=== PATIENT | male | born 1970 | race Asian ===

== ENCOUNTER 2023-09-22 06:50 | Emergency (ER) | payer BC ==
[~2023-09-22] VITALS: Ht 172.7 cm; Wt 165.7 kg
[2023-09-22 10:35] LABS: ALANINE AMINOTRANSFERASE 24 U/L (12-78); ALBUMIN 3.2 G/DL (3.4-5.0); ALBUMIN/GLOBULIN RATIO 0.7 (1.1-1.5); ALKALINE PHOSPHATASE 111 IU/L (46-116); ANION GAP 7 (8-16); ASPARTATE AMINO TRANSFERASE 15 U/L (10-37); BILIRUBIN,TOTAL 0.4 MG/DL (0.1-1.0); BLOOD UREA NITROGEN 14 MG/DL (7-18); BUN/CREATININE RATIO 21.5 (10.0-20.0); CALCIUM 8.8 MG/DL (8.5-10.1); CHLORIDE 105 MMOL/L (99-107); CREATININE 0.65 MG/DL (0.60-1.10); GLUCOSE 124 MG/DL (70-104); POTASSIUM 4.1 MMOL/L (3.5-5.1); SODIUM 136 MMOL/L (135-145); TOTAL CARBON DIOXIDE 24.5 MMOL/L (24-32); TOTAL PROTEIN 7.8 G/DL (6.4-8.2); eCRCL 129 ML/MIN; eGFR > 90 ML/MIN
[2023-09-22] MEDS ORDERED: acetaminophen 325mg tablet PO ONE (10:50)
[2023-09-22] MEDS ORDERED: NYST15CR37 TOP (11:34)
[2023-09-22 11:59] VITALS: BP 150/75; PULSE 90; RESP 18; TEMP 98.8; O2SAT 97
== END 2023-09-22 12:01 | disposition home or self-care (01) ==
LOC: ER 06:51
DX: L08.9 Local infection of the skin and subcutaneous tissue, unspecified (principal); Z79.899 Other long term (current) drug therapy
CPT/HCPCS: 36415; 80053; 99285